=== PATIENT | female | born 1970 | race Caucasian/White ===

== ENCOUNTER → 2020-10-23 | Outpatient (CLI) | payer OTHER, BC ==
[~2020-10-23] MED LIST: CITA10TA8 PO; DIAZ10TA PO; ETHI1TAB26 PO; GADOTERATE 10 MMOL/20 ML VIAL ONE; LEVO200T PO; PROG100C16 PO
== END | disposition home or self-care (01) ==
LOC: CFH 13:29
PROVIDERS: ATTEND Specialist
DX: C50.512 Malignant neoplasm of lower-outer quadrant of left female breast (principal); N60.02 Solitary cyst of left breast; N60.01 Solitary cyst of right breast
CPT/HCPCS: 77049; A9575; C8937; C8908

== ENCOUNTER 2020-12-18 10:52 | Outpatient (CLI) | payer OTHER, BC ==
[~2020-12-18 10:52] MED LIST changes: -GADOTERATE 10 MMOL/20 ML VIAL ONE
== END 2020-12-18 23:59 | disposition home or self-care (01) ==
LOC: ROC 10:52
PROVIDERS: ATTEND Radiology Radiation Oncology
DX: C50.512 Malignant neoplasm of lower-outer quadrant of left female breast (principal)
CPT/HCPCS: 99214; G0463

== ENCOUNTER → 2021-03-05 | Outpatient (CLI) | payer OTHER, BC | END | disposition home or self-care (01) | LOC: ROC 07:20 | PROVIDERS: ATTEND Radiology Radiation Oncology | DX: C50.512 Malignant neoplasm of lower-outer quadrant of left female breast (principal) | CPT/HCPCS: 99212; G0463 ==